=== PATIENT | male | born 1990 | race Caucasian/White ===

== ENCOUNTER 2017-01-27 00:54 | Emergency (ER) | payer BC ==
[~2017-01-27] VITALS: Ht 175.3 cm; Wt 94.1 kg
--- OUTSIDE RECORDS SUMMARY | 2017-01-27 00:59 | XMS REPORT | Summary of Care ---
Author Author Alfonso Ramírez M.D. Organization Unknown Address Unknown Phone Unavailable Care Team Providers Care Admission Liaison Name Role Phone Alfonso Ramírez Unavailable Unavailable Functional Status Name Dates Details Functional status health issues are not documented Status: Name Dates Details Cognitive status health issues are not documented Status: Problems Name Dates Details Numbness of right hand (782.0, R20.0) Status: Active Wrist pain, acute, right (719.43, M25.531) Status: Active Medications Name Dates Details No Reported Medications Refills: 0 Active Allergies and Adverse Reactions Name Dates Details No Known Drug Allergies (Allergy) Status: Active Procedures Procedure Dates Details BONE SCAN LIMITED AREA Ordered: 26-Apr-2016 Immunization Name Dates Details Immunizations not documented Family History Name Dates Details Family history of hypothyroidism (V18.19, Z83.49) Status: Active Name Dates Details Family history of myocardial infarction (V17.3, Z82.49) Status: Active Social History Name Dates Details - Status: Name Dates Details Smoker. current status unknown Vital Signs Date Test Result Details 26-Apr-2016 09:32 BP Systolic 114 mm[Hg] Status: Comments: Location: LUE; Position: Sitting BP Diastolic 66 mm[Hg] Status: Comments: Location: E; Position: Sitting Temperature 99 f Status: Comments: Method: Tympanic Heart Rate 72 /min Status: Comments: Location: ; Height 69 in Status: Weight 198.0 lb Status: Physical Findings 97 Status: Comments: O2 Saturation Body Mass Index Calculated 29.24 kg/m2 Status: Body Surface Area Calculated 2.06 m2 Status: Results Date Description Value Details 26-Apr-2016 10:50 XRay WRIST-Right Comments: Exam Date: 04/26/2016 10: 14Dictation Date: 04/26/2016 10:50 X WRIST COMP (MIN 3V) RT Plan of Care Name Dates Details Planned Observations Planned Goals not documented Interventions Provided Labs/Procedures/ImagingXRay WRIST-Right; Done: [id number] 10:50AM Instructions Name Dates Details Instructions not documented Encounters Appointment; Alfonso Ramírez M.D. Encounter Diagnosis: Problem not documented On 26-Apr-2016 09:15
[2017-01-27] MEDS ORDERED: ADENOSINE 6 MG/2 ML (ADENOCARD) VIAL IV ONE ×2 (01:12→01:15)
[2017-01-27 01:25] LABS: BASOPHILS % (AUTO) 1 % (0-2); EOSINOPHILS # (AUTO) 0.2 10^3uL; EOSINOPHILS % (AUTO) 2 % (0-4); LYMPHOCYTES # (AUTO) 4.4 X10^3; MEAN CORPUSCULAR HEMOGLOBIN 30.5 PG (26.0-34.0); MEAN CORPUSCULAR HGB CONC 35.4 g/dL (31.0-37.0); MEAN CORPUSCULAR VOLUME 86 FL (80-100); MEAN PLATELET VOLUME 10.7 FL (6.0-9.5); MONOCYTES # (AUTO) 0.9 X10^3; MONOCYTES % (AUTO) 9 % (3-11); NEUTROPHILS # (AUTO) 5.1 X10^3; NEUTROPHILS % (AUTO) 47 % (51-67); PLATELET COUNT 268 10^3uL (150-450); WHITE BLOOD COUNT 10.71 10^3uL (4.0-11.0)
[2017-01-27 01:35] LABS: ALBUMIN 5.1 g/dL (3.4-5.0); ALKALINE PHOSPHATASE 82 U/L (38-126); ANION GAP 20.4 MEQ/L (3-15); BUN/CREATININE RATIO 13 (10-20); CALCULATED IONIZED CALCIUM 3.9 mg/dL (3.8-4.6); TOTAL PROTEIN 8.6 g/dL (6.4-8.5)
[2017-01-27 02:21] LABS: AMPHETAMINE SCREEN, URINE Negative (Negative); CANNABINOID SCREEN, URINE Negative (Negative); METHAMPHETAMINE SCREEN URINE S NEGATIVE (NEGATIVE); OPIATE SCREEN URINE Negative (Negative); PROPOXYPHENE STAT NEGATIVE (NEGATIVE)
--- NOTE | 2017-01-27 02:25 | NUR ---
PT WANTING TO KNOW IF HE CAN LEAVE NOW SINCE SYMPTOMS RESOLVED. EXPLAINED TO HIM WE WERE WAITING FOR LAB AND NEEDED TO WAIT FOR DR TO CLEAR HIM
--- NOTE | 2017-01-27 02:40 | NUR ---
PT WANTING TO LEAVE AGAIN EXPLAINED THAT NEEDED TO HAVE DR CLEAR HIM TO GO HOME. PT SAID HE WAS STILL GOING TO DRINK BEER AND WAS JOKING TO HIS FRIENDS THAT THEY NEEDED TO GO BACK TO [place] WHEN FINISHED HERE. RN EXPRESSED TO HIM SEVERITY OF HAVING THE SVT AND THAT IT WAS IMPORTANT TO TAKE CARE OF SELF BECAUSE IT CAN WEAKEN THE HEART MUSCLE AND HE COULD . PT SAID OH WELL AT LEAST IT WOULDN'T HURT.
--- NOTE | 2017-01-27 02:55 | NUR ---
Pt dismissed to home with instructions. Pt appears to make light of his situation maxwell. Tells this RN that he will not give up his beer and laughs about it. This RN reminded him of the seriousness of maxwell's event and pt seems unconcerned and makes jokes. Pt stated he understood the instructions about following up with a double surface operator. Pt disconnected from monitor, IV site discontinued. Pt left ambulatory to [facility] accompanied by his friends. No other concerns or questions presented.
[2017-01-27 03:14] VITALS: BP 127/82
--- NOTE | 2017-01-27 07:50 | Diagnostic Imaging Report ---
INDICATION: Racing heart time for 35 minutes.. TECHNIQUE: Single view chest 1:31 AM. CORRELATION STUDY: 09/28/2015 FINDINGS: The heart size, mediastinal configuration and pulmonary vascularity are within normal limits. The lungs are clear with no consolidating infiltrate. There is no significant effusion or pneumothorax. IMPRESSION: 1. Negative portable chest. Dictated by: Dictated on workstation # [id number]
== END 2017-01-27 02:55 | disposition home or self-care (01) ==
LOC: ED 01:03
DX: I47.1 Supraventricular tachycardia (principal); F10.929 Alcohol use, unspecified with intoxication, unspecified; Y90.7 Blood alcohol level of 200-239 mg/100 ml
CPT/HCPCS: 36415; 71010; 80053; 80307; 80320; 84484; 85025; 93005; 96361; 96374; 99284; J0153; J7030; 93010